=== PATIENT | male | born 1985 ===

== ENCOUNTER 2017-10-29 08:26 | Day surgery (SDC) | payer OTHER ==
[~2017-10-29 08:26] MED LIST: ACETAMINOPHEN 1,000 MG/100 ML BTL IV ONE; CLINDAMYCIN 600MG/50ML PREMIX 600 MG/50 ML BAG IVPB ONE
[2017-10-29] MEDS ORDERED: LIDOCAINE 2% MDV (20MG/ML) 20ML VIAL IV ONE (08:27)
[2017-10-29] MEDS ORDERED: FENTANYL PF 100MCG/2ML VIAL IV ONE (08:27)
[2017-10-29] MEDS ORDERED: BUPIVACAINE 0.25% W/EPI MPF 30ML VIAL IVP ONE (08:27)
[2017-10-29] MEDS ORDERED: ONDANSETRON HCL IV 4 MG/2 ML VIAL IVP ONE (08:27)
[2017-10-29] MEDS ORDERED: MIDAZOLAM HCL 2MG/2ML VIAL IV ONE (08:27)
[2017-10-29] MEDS ORDERED: PROPOFOL 10 MG/ML VIAL IV ONE (08:27)
--- NOTE | 2017-11-08 10:42 | Operative Note ---
DATE OF SURGERY: 10/29/2017 Surgeon: Steven Marcano DO PREOPERATIVE DIAGNOSIS: Scalp mass x2. POSTOPERATIVE DIAGNOSIS: Scalp mass x2. OPERATION: I&D of posterior scalp mass x2. Indication: The patient is a 32-year-old male who presented to the clinic with 2 masses on the posterior aspect of his scalp. On exam, I felt these were probable sebaceous cysts. We did discuss excision. Risks, benefits, and alternatives were discussed. Risks include bleeding, infection, or recurrence. He understood this fully. Thereafter, consent was signed and questions answered. PROCEDURE: The patient was taken to the operating room and placed in the right lateral position on a beanbag. His scalp was shaved of hair and prepped and draped in the usual sterile fashion. The area around these masses was anesthetized with a total of 8 mL of 0.25% Sensorcaine with epinephrine. The larger measured about 3 cm. A small incision was made. This was carried down until an abscess cavity was encountered. This did drain copious amounts of purulent fluid. Aerobic and anaerobic cultures were taken. This was irrigated and packed with iodoform gauze. There was a smaller one just inferior and medial to this with an I&D done as well. There was no mature cavity of a sebaceous cyst. These both appeared to be abscesses. Again, both were irrigated and packed. He was given instructions with his on packing removal. I will see him back in about 2 weeks. [address] you for this referral. [facility]ITAL[facility]uro
== END 2017-10-29 11:15 | disposition home or self-care (01) ==
LOC: SUR 08:26
PROVIDERS: ATTEND Surgery
DX: L02.811 Cutaneous abscess of head [any part, except face] (principal); F17.210 Nicotine dependence, cigarettes, uncomplicated
CPT/HCPCS: J2405